=== PATIENT | female | born 1945 | race Native Hawaiian/Other Pacific Islander ===

== ENCOUNTER 2016-07-20 10:58 | Outpatient (CLI) | payer OTHER ==
[~2016-07-20 10:58] MED LIST: ACET7.5T70 PO; CELEXA40 MG PO; CLONAZEP ODT2 MG PO; ESTR0.6211 PO; FLUO20CA6 PO; LISI20TA24 PO; MOBIC15 MG PO; ZANTAC300 MG PO
== END 2016-07-20 19:14 | disposition home or self-care (01) ==
LOC: RAD 10:58
DX: M79.671 Pain in right foot (principal); M79.672 Pain in left foot

== ENCOUNTER 2016-11-08 15:22 | Outpatient (CLI) | payer OTHER | END 2016-11-08 16:30 | disposition home or self-care (01) | LOC: RAD 15:22 | DX: M25.562 Pain in left knee (principal); M79.601 Pain in right arm ==